=== PATIENT | male | born 1955 | race Caucasian/White ===

== ENCOUNTER 2023-01-25 15:04 | Emergency (ER) | payer OTHER ==
[2023-01-25 15:11] VITALS: BP 149/91; PULSE 78; RESP 18; TEMP 98; BMI 26.7
== END 2023-01-25 16:50 | disposition home or self-care (01) ==
LOC: FER 15:04
DX: S69.91XA Unspecified injury of right wrist, hand and finger(s), initial encounter (principal); W23.0XXA Caught, crushed, jammed, or pinched between moving objects, initial encounter
CPT/HCPCS: 73140-TC-RT-FY; 99283-25

== ENCOUNTER 2024-06-06 13:00 | Emergency (ER) | payer OTHER ==
[2024-06-06] MEDS ORDERED: IBUPROFEN 400 MG TABLET (FP) PO ONE (13:23)
[2024-06-06] MEDS ORDERED: LIDOCAINE 5% TOPICAL PATCH ONE (13:23)
[2024-06-06] MEDS: LIDOCAINE 5% TOPICAL PATCH TP ONE (13:29)
[2024-06-06] MEDS: IBUPROFEN 400 MG TABLET (FP) PO ONE (13:29)
[2024-06-06 15:12] VITALS: BP 172/95; PULSE 92; RESP 20; TEMP 97.5; BMI 25.1
[2024-06-06 17:37] LABS: HIV INTERPRETATION NEGATIVE (NEGATIVE)
[2024-06-06] MEDS ORDERED: LIDOCAINE PATCH REMOVAL MC ONE (22:00)
== END 2024-06-06 14:18 | disposition home or self-care (01) ==
LOC: FER 13:00
DX: M54.2 Cervicalgia (principal); M79.601 Pain in right arm; V49.50XA Passenger injured in collision with unspecified motor vehicles in traffic accident, initial encounter
CPT/HCPCS: 36415; 86803; 87389; 99283-25